=== PATIENT | female | born 1990 | race Caucasian/White ===

== ENCOUNTER → 2016-10-21 | Outpatient (CLI) | payer BC, OTHER ==
[~2016-10-21] MED LIST: BCPILLS PO; MISCCAP80 PO; MULT-506 PO; OMEG10007 PO
== END | disposition home or self-care (01) ==
LOC: C.PAPS 10:56
PROVIDERS: ATTEND Obstetrics & Gynecology
DX: Z01.419 Encounter for gynecological examination (general) (routine) without abnormal findings (principal)

== ENCOUNTER → 2016-11-21 | Outpatient (CLI) | payer BC | END | disposition home or self-care (01) | LOC: C.FOODA 14:45 | PROVIDERS: ATTEND Internal Medicine Geriatric Medicine | DX: R19.4 Change in bowel habit (principal); K90.49 Malabsorption due to intolerance, not elsewhere classified; R63.4 Abnormal weight loss ==

== ENCOUNTER → 2017-03-03 | Day surgery (SDC) | payer BC ==
[2017-02-24 09:07] VITALS: Ht 154.9 cm; Wt 45.5 kg
[~2017-03-03] VITALS: Ht 154.9 cm; Wt 45.5 kg
[~2017-03-03] MED LIST changes: +ATROPINE SULFATE 0.1 MG/ML 5ML SYR IV PRN; +EpHEDrine SULFATE INJ 50 MG/ML AMP IV PRN; +FENTANYL CITRATE INJ 50 MCG/1 ML 2 ML VIAL ONE; +PROPOFOL IV EMULSION 10 MG/ML 20 ML VIAL IV ONE
[2017-03-03 09:38] VITALS: TEMP 36.3
--- NOTE | 2017-03-03 09:55 | Endo History and Physical ---
History & Physical Date of Service: Mar 03, 2017. Chief Complaint: weight loss Referring Physician: Angela Butler PA-C History of Present Illness 26 yo CF who presents for EGD secondary to weight loss. Past Surgical History Hx Cardiac Surgery: No Hx Internal Defibrillator: No Hx Pacemaker: No Hx Abdominal Surgery: No Hx of Implantable Prosthesis: No Hx Post-Op Nausea and Vomiting: No Hx Cancer Surgery: No Hx Thoracic Surgery: No Hx Orthopedic: No Hx Urinary Tract Surgery: No Family History None Social History Smoking Status: Never Smoker Hx Substance Use: No Hx Alcohol Use: Yes (OCAS) Allergies Coded Allergies: No Known Allergies (Verified , 03/03/17) Current Medications Reported Home Medications Medications Dose Route/Sig Max Daily Dose Days Date Category Probiotic (Probiotic Product) 1 Cap Cap 1 Cap PO QAM 02/14/17 Reported [place]-3 (Fish Oil) 1 Ea Cap 1 Cap PO QAM 02/14/17 Reported Multivitamin (Multivitamins) Tab 1 Tab PO QAM 02/06/16 Reported Control Pills (Miscellaneous) Tab 1 Tab PO QAM 02/06/16 Reported Vital Signs Weight (Kilograms): 45.45 Height (Feet): 5 Height (Inches): 1 Date Time Temp Pulse Resp B/P (MAP) Pulse Ox O2 Delivery O2 Flow Rate FiO2 03/03/17 09:38 36.3 74 18 103/65 (78) 10 Room Air Physical Exam General Appearance: WD/WN, no apparent distress Respiratory/Chest: Auscultation: breath sounds normal Cardiovascular: Heart Auscultation: RRR Abdomen: Bowel Sounds: normal Inspection & Palpation: soft, non-distended, no tenderness, guarding & rebound Assessment and Plan Assessment: 26 yo CF who presents for EGD secondary to weight loss. Plan: Proceed with EGD.
--- NOTE | 2017-03-03 10:42 | Anesthesiology Progress Note ---
Anesthesia Post Op Note Date & Time Mar 03, 2017 at 10:42 Vital Signs Pain Intensity: 0 Vital Signs Past 12 Hours Date Time Temp Pulse Resp B/P (MAP) Pulse Ox O2 Delivery O2 Flow Rate FiO2 03/03/17 10:33 76 16 99/60 (73) 97 Room Air 03/03/17 09:38 36.3 74 18 103/65 (78) 10 Room Air Notes Mental Status: alert / awake / arousable, participated in evaluation Pt Amnestic to Procedure: Yes Nausea / Vomiting: adequately controlled Pain: adequately controlled Airway Patency, RR, SpO2: stable & adequate BP & HR: stable & adequate Hydration State: stable & adequate Anesthetic Complications: no major complications apparent
--- NOTE | 2017-03-03 10:49 | GI REPORT ---
Procedure Date: 03/03/2017 10:07 AM Procedure: Upper GI endoscopy Indications: Weight loss Medicines: Monitored Anesthesia Care Complications: No immediate complications. Estimated Blood Loss: Estimated blood loss: none. Procedure: Pre-Anesthesia Assessment: - Prior to the procedure, a History and Physical was performed, and patient medications and allergies were reviewed. The patient's tolerance of previous anesthesia was also reviewed. The risks and benefits of the procedure and the sedation options and risks were discussed with the patient. All questions were answered, and informed consent was obtained. Prior Anticoagulants: The patient has taken no previous anticoagulant or antiplatelet agents. ASA Grade Assessment: II - A patient with mild systemic disease. After reviewing the risks and benefits, the patient was deemed in satisfactory condition to undergo the procedure. After obtaining informed consent, the endoscope was passed under direct vision. Throughout the procedure, the patient's blood pressure, pulse, and oxygen saturations were monitored continuously. The scope was introduced through the mouth, and advanced to the second part of duodenum. The upper GI endoscopy was accomplished without difficulty. The patient tolerated the procedure well. Findings: The Z-line was irregular. Biopsies were taken with a cold forceps for histology. The entire examined stomach was normal. Biopsies were taken with a cold forceps for Helicobacter pylori testing. The examined duodenum was normal. Biopsies for histology were taken with a cold forceps for evaluation of celiac disease. Impression: - Z-line irregular. Biopsied. - Normal stomach. Biopsied. - Normal examined duodenum. Biopsied. Recommendation: - Resume previous diet. - Continue present medications. - Await pathology results. - Return to GI clinic as previously scheduled. Gabino Cabral, DO 03/03/2017 10:49:19 AM This report has been signed electronically. Note Initiated On: 03/03/2017 10:07 AM I attest to the content of the Intraoperative Record and orders documented therein, exceptions below
--- NOTE | 2017-03-03 10:57 | Discharge Instructions ---
Endoscopy Patient Instructions Date / Procedure(s) Performed Mar 03, 2017. EGD Allergy Information Coded Allergies: No Known Allergies (Verified , 03/03/17) Discharge Date / Findings Mar 03, 2017. Normal EGD with biopsies of esophagus, stomach and duodenum. Medication Instructions Stopped Medication(s): last dose MVI and supplements Friday Restart Stopped Medication(s): OK to resume all medications today as prescribed Medications Dose Route/Sig Max Daily Dose Days Date Category Probiotic (Probiotic Product) 1 Cap Cap 1 Cap PO QAM 02/14/17 Reported [place]-3 (Fish Oil) 1 Ea Cap 1 Cap PO QAM 02/14/17 Reported Multivitamin (Multivitamins) Tab 1 Tab PO QAM 02/06/16 Reported Control Pills (Miscellaneous) Tab 1 Tab PO QAM 02/06/16 Reported Provider Instructions Activity Restrictions - No exercising or heavy lifting for 24 hours. - Do not drink alcohol the day of the procedure. - Do not drive a car or operate machinery until the day after the procedure. - Do not make any important decisions or sign important papers in 24 hours after the procedure. Following Day: - Return to full activity which may include returning to work/school. Diet Start your diet with liquids and light foods (jello, soup, juice, toast). Then eat your usual diet if not nauseated. Treatment For Common After Affects For mild abdominal pain, bloating, or excessive gas: - Rest - Eat lightly - Lie on right side Follow-Up Information Follow-up with Angela Butler PA-C as scheduled Anesthesia Information What You Should Know You have had a procedure that required some medicine to reduce anxiety and discomfort. This treatment is called moderate sedation. After receiving the treatment, you may be sleepy, but you will be able to breathe on your own. The effects of the treatment may last for several hours. Follow these instructions along with Activity/Diet recommendations noted above: * Do NOT do anything where dizziness or clumsiness would be dangerous. * Rest quietly at home today, then you can be up and about tomorrow. * Have a responsible person stay with you the rest of today. * You may have had an I.V. today. If so, you may take the dressing off later today. Recommendations Call your doctor if: * Trouble breathing * Continuous vomiting for more than 24 hours * Temperature above 101 degrees * Severe abdominal pain or bloating * Pain not relieved by pain medicine ordered * There is increased drainage or redness from any incision * A large amount of rectal bleeding greater than 2-3 tablespoons. (If you had a polyp/s removed or have hemorrhoids, a small amount of blood - from the rectum is to be expected.) * You have any unanswered questions or concerns. IN THE EVENT OF A SERIOUS EMERGENCY, GO TO THE NEAREST EMERGENCY ROOM Your discharge instructions were prepared by provider Gabino Cabral. Patient Instructions Signature Page Lissette Boone Patient (or Guardian) Signature/Date: I have read and understand the instructions given to me by my caregivers. Caregiver/RN/Doctor Signature/Date: The above-named patient and/or guardian has received patient instructions on this date. + Original Patient Signature Page (only) stays with chart. Please make copy for patient.
[2017-03-03 11:03] VITALS: BP 96/62; PULSE 60; O2SAT 100
== END | disposition home or self-care (01) ==
LOC: C.GI 09:13
PROVIDERS: ATTEND Internal Medicine
DX: R63.4 Abnormal weight loss (principal); K31.89 Other diseases of stomach and duodenum; K29.50 Unspecified chronic gastritis without bleeding; Z68.1 Body mass index [BMI] 19.9 or less, adult

== ENCOUNTER → 2017-04-10 | Outpatient (CLI) | payer BC ==
[~2017-04-10] MED LIST changes: -ATROPINE SULFATE 0.1 MG/ML 5ML SYR IV PRN; -EpHEDrine SULFATE INJ 50 MG/ML AMP IV PRN; -FENTANYL CITRATE INJ 50 MCG/1 ML 2 ML VIAL ONE; -PROPOFOL IV EMULSION 10 MG/ML 20 ML VIAL IV ONE
== END | disposition home or self-care (01) ==
LOC: C.FOODA 13:31
PROVIDERS: ATTEND Physician Assistant
DX: K58.9 Irritable bowel syndrome, unspecified (principal); R63.4 Abnormal weight loss; K21.9 Gastro-esophageal reflux disease without esophagitis

== ENCOUNTER → 2017-04-16 | Outpatient (CLI) | payer BC ==
[2017-04-16 11:18] LABS: THYROID STIMULATING HORMONE 1.94 uIu/ml (0.300-4.500)
== END | disposition home or self-care (01) ==
LOC: C.LAB1850 09:33
PROVIDERS: ATTEND Physician Assistant
DX: R19.4 Change in bowel habit (principal)

== ENCOUNTER → 2017-10-01 | Outpatient (CLI) | payer BC ==
--- NOTE | 2017-10-01 14:20 | DIAGNOSTIC IMAGING REPORT ---
CHEST 2 VIEWS ROUTINE CLINICAL HISTORY: Atypical chest pain COMPARISON STUDY: No previous studies for comparison. FINDINGS: The cardiac and mediastinal contours are normal. There is no evidence of focal pulmonary consolidation. There is no evidence of failure. No pleural effusions are visualized.[ No pneumothorax is visualized. IMPRESSION: No active disease in the chest. Electronically signed by: Tk Flores M.D. 10/01/2017 2:19 PM Dictated Date/Time: 10/01/2017 2:19 PM
== END | disposition home or self-care (01) ==
LOC: C.RADBC 14:02
PROVIDERS: ATTEND Physician Assistant Medical
DX: R07.9 Chest pain, unspecified (principal)

== ENCOUNTER → 2017-10-23 | Outpatient (CLI) | payer BC | END | disposition home or self-care (01) | LOC: C.PAPS 10:31 | PROVIDERS: ATTEND Physician Assistant | DX: Z01.419 Encounter for gynecological examination (general) (routine) without abnormal findings (principal) ==